=== PATIENT | male | born 1950 | race Caucasian/White ===

== ENCOUNTER 2022-03-18 16:54 | Observation (INO) | payer OTHER, MEDICARE ==
[2022-03-18 17:54] LABS: CALCIUM 9.1 mg/dL (8.5-10.1)
[2022-03-18 17:55] LABS: BLOOD UREA NITROGEN 16.2 mg/dL (7-18)
[2022-03-18 17:58] LABS: CREATININE 1.2 mg/dL (0.55-1.3)
[2022-03-18 17:59] LABS: INR 1.11 (0.83-1.09); PROTHROMBIN TIME (PATIENT) 12.8 SEC (9.7-13.0)
[2022-03-18 18:00] LABS: TOT PROT 7.9 g/dl (6.4-8.2)
[2022-03-18 18:04] LABS: BASO % 0.2 % (0-2.0); EOS % 0.4 % (0-4.5); HEMATOCRIT 49.6 % (35.4-49); HEMOGLOBIN 16.5 GM/dL (11.7-16.9); LYMPH % 6.3 % (8-40); MCH 31.2 pg (25.7-33.7); MCHC 33.3 g/dl (32.0-35.9); MEAN CELL VOLUME 93.5 fl (80-96); MEAN PLT VOLUME 7.6 fl (7.5-11.1); MONO % 7.2 % (3.8-10.2); NEUT % 85.9 % (42.8-82.8); PLATELET COUNT 315 10^3/uL (134-434); RDW 13.5 % (11.9-15.9); WHITE BLOOD COUNT 14.2 K/mm3 (4.0-10.0)
[2022-03-18] MEDS ORDERED: CEFTRIAXONE 1 GM in DEXTROSE 5%-WATER - 100 ML IVPB ONE (18:50)
[2022-03-18] MEDS ORDERED: AZITHROMYCIN IVPB 500 MG in DEXTROSE 5%-WATER - 250 ML IVPB ONE (18:50)
[2022-03-18] MEDS ORDERED: CEFTRIAXONE 1 GM/50 ML BAG ONE (18:52)
[2022-03-18] MEDS ORDERED: POTASSIUM CHLORIDE TABS 20 MEQ TABLET.ER (FP) PO ONE ×2 (19:13→19:33)
[2022-03-18] MEDS ORDERED: AZITHROMYCIN IVPB 500 MG/250 ML BAG IVPB ONE (19:33)
[2022-03-19] MEDS ORDERED: ALBUTEROL SO4 2.5/IPRATROPIUM 0.5 INH SOL 3 ML VIAL.NEB. NEB SCH (00:30)
[2022-03-19] MEDS: methylPREDNISolone NA SUCC 40 MG/1 ML VIAL IVPUSH SCH ×3 (03:51→17:19)
[2022-03-19] MEDS ORDERED: ALBUTEROL SO4 HFA INHALER IH PRN (04:16)
[2022-03-19] MEDS ORDERED: methylPREDNISolone NA SUCC 40 MG/1 ML VIAL ONE ×3 (06:46→17:18)
[2022-03-19 07:59] LABS: BASO % 0.2 % (0-2.0); EOS % 0.3 % (0-4.5); HEMATOCRIT 45.6 % (35.4-49); HEMOGLOBIN 15.3 GM/dL (11.7-16.9); LYMPH % 5.9 % (8-40); MCH 31.2 pg (25.7-33.7); MCHC 33.6 g/dl (32.0-35.9); MEAN CELL VOLUME 92.9 fl (80-96); MEAN PLT VOLUME 7.8 fl (7.5-11.1); MONO % 11.3 % (3.8-10.2); NEUT % 82.3 % (42.8-82.8); PLATELET COUNT 264 10^3/uL (134-434); RBC 4.91 M/mm3 (4.00-5.60); RDW 13.7 % (11.9-15.9); WHITE BLOOD COUNT 13.7 K/mm3 (4.0-10.0)
[2022-03-19 08:14] LABS: ALBUMIN 3.3 g/dl (3.4-5.0); BLOOD UREA NITROGEN 17.4 mg/dL (7-18); CALCIUM 8.3 mg/dL (8.5-10.1)
[2022-03-19 08:17] LABS: CREATININE 1.1 mg/dL (0.55-1.3); PHOSPHOROUS 2.2 mg/dL (2.5-4.9)
[2022-03-19 08:19] LABS: TOT PROT 6.9 g/dl (6.4-8.2)
[2022-03-19] MEDS ORDERED: levETIRAcetam 500 MG TABLET (FP) PO ONE (09:17)
[2022-03-19] MEDS ORDERED: TAMSULOSIN HCL 0.4 MG CAP ONE (09:18)
[2022-03-19] MEDS ORDERED: ENOXAPARIN NA (PORCINE) 40 MG/0.4 ML DISP.SYRIN SQ ONE ×2 (09:18→09:24)
[2022-03-19] MEDS ORDERED: CEFTRIAXONE 1 GM/50 ML BAG ONE (09:19)
[2022-03-19] MEDS: levETIRAcetam 250 MG TABLET PO SCH ×2 (09:20→22:28)
[2022-03-19] MEDS: TAMSULOSIN HCL 0.4 MG CAP PO SCH (09:20)
[2022-03-19] MEDS: CEFTRIAXONE 1 GM in DEXTROSE 5%-WATER - 50 ML IVPB SCH (09:21)
[2022-03-19] MEDS: TIMOLOL 0.5% OPHTHALMIC SOL 5 ML BOTTLE OU SCH (09:22)
[2022-03-19] MEDS ORDERED: AZITHROMYCIN IVPB 500 MG/250 ML BAG IVPB ONE (09:25)
[2022-03-19] MEDS: ENOXAPARIN NA (PORCINE) 40 MG/0.4 ML DISP.SYRIN SQ SCH (09:27)
[2022-03-19] MEDS: AZITHROMYCIN IVPB 250 MG in DEXTROSE 5%-WATER - 250 ML IVPB SCH (09:29)
[2022-03-19] MEDS ORDERED: PATIENT'S OWN MEDICATION (NON-FORMULARY) (Fluticasone Propionate [Flovent Diskus] 50 MCG B IH SCH (10:00)
[2022-03-19] MEDS: ACETAMINOPHEN 500 MG TABLET (FP) PO SCH (11:26)
[2022-03-19] MEDS ORDERED: NAPH,MB-DB/K PH,MBDB POWDER PACKET PO ONE (13:00)
[2022-03-19 15:17] VITALS: RESP 18
[2022-03-19] MEDS ORDERED: NAPH,MB-DB/K PH,MBDB POWDER PACKET ONE (17:17)
[2022-03-19 19:05] VITALS: BMI 22.1
[2022-03-19] MEDS: ALBUTEROL SO4 2.5/IPRATROPIUM 0.5 INH SOL 3 ML VIAL.NEB. NEB SCH (20:18)
[2022-03-19] MEDS: ATORVASTATIN CA 10 MG TABLET (FP) PO SCH (22:28)
[2022-03-20] MEDS: methylPREDNISolone NA SUCC 40 MG/1 ML VIAL IVPUSH SCH ×2 (00:27→08:05)
[2022-03-20] MEDS: ALBUTEROL SO4 2.5/IPRATROPIUM 0.5 INH SOL 3 ML VIAL.NEB. NEB SCH ×3 (07:35→20:16)
[2022-03-20] MEDS: TAMSULOSIN HCL 0.4 MG CAP PO SCH (08:28)
[2022-03-20] MEDS: ACETAMINOPHEN 500 MG TABLET (FP) PO SCH (10:04)
[2022-03-20] MEDS: ENOXAPARIN NA (PORCINE) 40 MG/0.4 ML DISP.SYRIN SQ SCH (10:04)
[2022-03-20] MEDS: levETIRAcetam 250 MG TABLET PO SCH ×2 (10:04→22:23)
[2022-03-20 10:40] LABS: BASO % 0.3 % (0-2.0); HEMATOCRIT 51.8 % (35.4-49); HEMOGLOBIN 17.3 GM/dL (11.7-16.9); LYMPH % 4.6 % (8-40); MCH 31.3 pg (25.7-33.7); MCHC 33.4 g/dl (32.0-35.9); MEAN CELL VOLUME 93.6 fl (80-96); MEAN PLT VOLUME 7.8 fl (7.5-11.1); MONO % 5.5 % (3.8-10.2); NEUT % 89.6 % (42.8-82.8); PLATELET COUNT 427 10^3/uL (134-434); RBC 5.53 M/mm3 (4.00-5.60); RDW 13.5 % (11.9-15.9); WHITE BLOOD COUNT 12.5 K/mm3 (4.0-10.0)
[2022-03-20] MEDS: TIMOLOL 0.5% OPHTHALMIC SOL 5 ML BOTTLE OU SCH (10:49)
[2022-03-20] MEDS: LATANOPROST 0.005% OPHTH SOLN 2.5ML BOTTLE OU SCH (10:49)
[2022-03-20] MEDS: AZITHROMYCIN IVPB 250 MG in DEXTROSE 5%-WATER - 250 ML IVPB SCH ×2 (10:49→13:33)
[2022-03-20] MEDS: CEFTRIAXONE 1 GM in DEXTROSE 5%-WATER - 50 ML IVPB SCH ×2 (10:49→13:24)
[2022-03-20 11:16] LABS: CALCIUM 9.5 mg/dL (8.5-10.1)
[2022-03-20 11:17] LABS: ALBUMIN 3.8 g/dl (3.4-5.0)
[2022-03-20 11:20] LABS: CREATININE 1.3 mg/dL (0.55-1.3)
[2022-03-20 11:21] LABS: TOT PROT 8.2 g/dl (6.4-8.2)
[2022-03-20 11:22] LABS: BILIRUBIN,TOTAL 0.4 mg/dL (0.2-1)
[2022-03-20] MEDS ORDERED: SODIUM CHLORIDE 1,000 ML IV SCH (14:15)
[2022-03-20] MEDS: ATORVASTATIN CA 10 MG TABLET (FP) PO SCH (22:23)
[2022-03-21] MEDS ORDERED: MELATONIN 5 MG TABLETS PO SCH (00:15)
[2022-03-21] MEDS: ALBUTEROL SO4 2.5/IPRATROPIUM 0.5 INH SOL 3 ML VIAL.NEB. NEB SCH (07:40)
[2022-03-21] MEDS: TAMSULOSIN HCL 0.4 MG CAP PO SCH (08:44)
[2022-03-21 09:57] VITALS: BP 131/66; PULSE 90; TEMP 97.6
[2022-03-21 10:20] LABS: BASO % 0.3 % (0-2.0); EOS % 0.8 % (0-4.5); HEMATOCRIT 42.4 % (35.4-49); HEMOGLOBIN 14.6 GM/dL (11.7-16.9); LYMPH % 9.3 % (8-40); MCH 31.7 pg (25.7-33.7); MCHC 34.5 g/dl (32.0-35.9); MEAN PLT VOLUME 7.7 fl (7.5-11.1); MONO % 8.7 % (3.8-10.2); NEUT % 80.9 % (42.8-82.8); PLATELET COUNT 315 10^3/uL (134-434); RBC 4.61 M/mm3 (4.00-5.60); RDW 13.4 % (11.9-15.9); WHITE BLOOD COUNT 10.3 K/mm3 (4.0-10.0)
[2022-03-21] MEDS: ACETAMINOPHEN 500 MG TABLET (FP) PO SCH (10:45)
[2022-03-21] MEDS ORDERED: AZITHROMYCIN IVPB 500 MG/250 ML BAG IVPB SCH (10:45)
[2022-03-21] MEDS: TIMOLOL 0.5% OPHTHALMIC SOL 5 ML BOTTLE OU SCH (10:45)
[2022-03-21] MEDS ORDERED: CEFTRIAXONE 1 GM in DEXTROSE 5%-WATER - 50 ML IVPB SCH (10:45)
[2022-03-21] MEDS: levETIRAcetam 250 MG TABLET PO SCH (10:45)
[2022-03-21] MEDS ORDERED: predniSONE 20 MG TABLET (UD) PO SCH (10:45)
[2022-03-21 10:47] LABS: ALBUMIN 3.2 g/dl (3.4-5.0); CALCIUM 8.4 mg/dL (8.5-10.1); MAGNESIUM 2.2 mg/dL (1.8-2.4)
[2022-03-21 10:48] LABS: BLOOD UREA NITROGEN 23.2 mg/dL (7-18)
[2022-03-21] MEDS ORDERED: POTASSIUM CHLORIDE TABS 20 MEQ TABLET.ER (FP) PO ONE (10:48)
[2022-03-21 10:50] LABS: CREATININE 1.1 mg/dL (0.55-1.3); PHOSPHOROUS 2.1 mg/dL (2.5-4.9)
[2022-03-21 10:52] LABS: BILIRUBIN,TOTAL 0.6 mg/dL (0.2-1); TOT PROT 6.6 g/dl (6.4-8.2)
[2022-03-21] MEDS: LATANOPROST 0.005% OPHTH SOLN 2.5ML BOTTLE OU SCH (11:14)
== END 2022-03-21 14:38 | disposition home or self-care (01) ==
LOC: JER 16:54 → JERBED 23:03 → INTOOBSV 23:03 → UNDOADMOB 23:03 → JERBED 03-19 14:01 → J6S 03-19 18:27
PROVIDERS: ADMIT Internal Medicine; ATTEND Internal Medicine
DX: J18.9 Pneumonia, unspecified organism (principal); J44.1 Chronic obstructive pulmonary disease with (acute) exacerbation; R06.00 Dyspnea, unspecified; E78.5 Hyperlipidemia, unspecified; N40.0 Benign prostatic hyperplasia without lower urinary tract symptoms; G47.9 Sleep disorder, unspecified; M21.372 Foot drop, left foot; R41.3 Other amnesia; R49.0 Dysphonia; Z87.891 Personal history of nicotine dependence
CPT/HCPCS: 0241U-QW; 36415; 70450-TC; 71250-TC; 74230-TC-FY; 80053; 82308; 83605; 83615; 83735; 84100; 84484; 85025; 85610; 87040; 92611-GN; 93005; 93010; 94640; 96361; 96365; 96366; 96367; 96368; 96372; 96375; 97116-GP; 97161-GP; 99285-25; G0378